=== PATIENT | female | born 1975 | race Caucasian/White ===

== ENCOUNTER → 2017-12-29 | Outpatient (CLI) | payer OTHER ==
[~2017-12-29] MED LIST: METPRE4DP PO; MULTIVITAMIN; OXYACE5T PO; RXOXYACE PO
== END ==
LOC: LAB 13:30 → LAB SHORT 13:30
PROVIDERS: Nurse Practitioner Family
DX: Z01.419 Encounter for gynecological examination (general) (routine) without abnormal findings (principal)
CPT/HCPCS: G0145

== ENCOUNTER 2023-04-30 12:06 | Day surgery (SDC) | payer BC ==
[~2023-04-30] VITALS: Ht 170.2 cm; Wt 88.2 kg
[2023-04-30 14:30] VITALS: BP 122/79
== END 2023-04-30 14:24 | disposition home or self-care (01) ==
LOC: ORSCSDS 12:06
PROVIDERS: Internal Medicine Gastroenterology
PROC: 0DJD8ZZ Inspection of Lower Intestinal Tract, Via Natural or Artificial Opening Endoscopic (ICD-10-PCS; principal; 2023-04-30 13:15)
DX: Z12.11 Encounter for screening for malignant neoplasm of colon (principal); Z80.0 Family history of malignant neoplasm of digestive organs; Z83.719 Family history of colon polyps, unspecified; K55.20 Angiodysplasia of colon without hemorrhage
CPT/HCPCS: J0461; J2001; J2405; J2704; J7120; Q9968